=== PATIENT | female | born 1995 | race African-American/Black ===

== ENCOUNTER 2019-10-06 11:20 | Emergency (ER) | payer MEDICAID, OTHER ==
[~2019-10-06] VITALS: Ht 160 cm; Wt 160.0 kg
[2019-10-06] MEDS ORDERED: SODIUM CHLORIDE 0.9% 1,000 ML IV ONE (11:53)
[2019-10-06] MEDS ORDERED: FAMOTIDINE 20MG/2ML VIAL IV ONE (12:15)
[2019-10-06 12:34] LABS: HEMATOCRIT. 42.9 % (36.0-48.0); HEMOGLOBIN. 14.7 g/dL (12.0-16.0); MEAN CORPUSCULAR HEMOGLOBIN 31.5 pg (28.0-32.0); MEAN CORPUSCULAR VOLUME 91.7 fL (81.0-99.0); MEAN PLATELET VOLUME 8.7 fl (7.4-10.4); PLATELET 234 x1000/uL (130-400); RED BLOOD CELL COUNT 4.67 mill/uL (4.2-5.4); RED CELL DISTRIBUTION WIDTH 15.9 % (11.6-14.6)
[2019-10-06 12:39] LABS: CHLORIDE 102 mEq/L (98-107)
[2019-10-06 12:41] LABS: CLARITY URINE CLOUDY (CLEAR); COLOR URINE DARK YELLOW (YELLOW); KETONES URINE NEGATIVE (NEGATIVE); LEUKOCYTE ESTERASE URINE 2+ (NEGATIVE); NITRITE URINE NEGATIVE (NEGATIVE); OCCULT BLOOD URINE 2+ (NEGATIVE); PROTEIN URINE 1+ (NEGATIVE); SPECIFIC GRAVITY URINE 1.011 (1.005-1.030)
[2019-10-06 12:43] LABS: ETHANOL BLOOD < 10 mg/dL
[2019-10-06 12:44] LABS: INR 1.1; PROTHROMBIN TIME 11.9 sec (9.6-11.0)
[2019-10-06 12:53] LABS: HCG SCREEN NEGATIVE
[2019-10-06 12:55] LABS: *AMPHETAMINES SCREEN URINE NEGATIVE (NEGATIVE); *BARBITURATES SCREEN URINE NEGATIVE (NEGATIVE); *BENZODIAZEPINES SCREEN URINE NEGATIVE (NEGATIVE); METHADONE URINE SCREEN NEGATIVE (NEGATIVE); OPIATES URINE SCREEN NEGATIVE (NEGATIVE)
[2019-10-06 12:56] LABS: PHENCYCLIDINE URINE SCREEN NEGATIVE (NEGATIVE)
[2019-10-06 12:57] LABS: PLATELET ESTIMATE NORMAL
[2019-10-06 13:03] LABS: *COCAINE SCREEN URINE PRESUMTIVE POSITIVE (NEGATIVE); CANNABINOID URINE SCREEN PRESUMTIVE POSITIVE (NEGATIVE)
[2019-10-06] MEDS ORDERED: MORPHINE SULFATE 4 MG/ML CPJ (NOT FOR IM USE) IV ONE (14:15)
[2019-10-06] MEDS ORDERED: CEFTRIAXONE 1 G PREMIX 50 ML IV ONE (14:15)
[2019-10-06] MEDS ORDERED: POTASSIUM CHLORIDE 20MEQ TABLET SR PO ONE (14:15)
[2019-10-06 16:00] VITALS: BP 139/80
== END 2019-10-06 16:06 | disposition home or self-care (01) ==
LOC: ER 11:20
DX: R10.13 Epigastric pain (principal); R11.2 Nausea with vomiting, unspecified; N39.0 Urinary tract infection, site not specified; F14.10 Cocaine abuse, uncomplicated; Z98.890 Other specified postprocedural states
CPT/HCPCS: 36415; 76705; 80053; 80305; 80320; 81003; 83690; 84703; 85025; 85610; 87077; 87086; 87186; 96361; 96365; 96375; 99285; J0696; J2270; J3490; J7030; G0480

== ENCOUNTER 2022-11-05 12:07 | Emergency (ER) | payer MEDICAID ==
[~2022-11-05] VITALS: Ht 154.9 cm; Wt 143.0 kg
[2022-11-05 12:09] VITALS: O2SAT 100
[2022-11-05] MEDS ORDERED: ACETAMINOPHEN 325MG TABLET PO ONE (13:15)
[2022-11-05] MEDS ORDERED: ACET-2708 MT (14:21)
[2022-11-05] MEDS ORDERED: ACETAMINOPHEN 325MG TABLET PO NR (15:15)
[2022-11-05] MEDS ORDERED: CYCL10TA21 MT (15:21)
[2022-11-05 15:26] VITALS: BP 127/90; PULSE 62; RESP 18; TEMP 98.2
== END 2022-11-05 15:29 | disposition home or self-care (01) ==
LOC: ER 12:07
DX: S09.90XA Unspecified injury of head, initial encounter (principal); R07.81 Pleurodynia; Z68.43 Body mass index [BMI] 50.0-59.9, adult; V49.9XXA Car occupant (driver) (passenger) injured in unspecified traffic accident, initial encounter; Y93.89 Activity, other specified; Y92.89 Other specified places as the place of occurrence of the external cause; Y99.8 Other external cause status
CPT/HCPCS: 71101; 81025; 99284

== ENCOUNTER 2023-05-29 12:59 | Emergency (ER) | payer MEDICAID ==
[~2023-05-29] VITALS: Ht 157.5 cm; Wt 150.0 kg
[~2023-05-29 12:59] MED LIST: ACET-2708 MT; CYCL10TA21 MT
[2023-05-29 13:06] VITALS: O2SAT 100
[2023-05-29] MEDS ORDERED: ACET-2708 MT (13:52)
[2023-05-29] MEDS ORDERED: AMOX1TAB16 MT (13:52)
[2023-05-29 14:24] VITALS: BP 134/89; PULSE 81; RESP 18
[2023-05-29 14:39] VITALS: TEMP 97.9
[2023-05-29] MEDS: AMOXICILLIN/POTASSIUM CLAVULANATE 875/125MG TAB PO ONE (14:39)
[2023-05-29] MEDS: ACETAMINOPHEN 325MG TABLET PO ONE (14:39)
== END 2023-05-29 14:38 | disposition home or self-care (01) ==
LOC: ER 12:59
DX: K04.7 Periapical abscess without sinus (principal); Z98.890 Other specified postprocedural states; Z79.899 Other long term (current) drug therapy
CPT/HCPCS: 99283